=== PATIENT | female | born 1965 | race Hispanic/Latino ===

== ENCOUNTER → 2022-09-22 | Outpatient (CLI) | payer BC | END | disposition home or self-care (01) | LOC: RAH 10:20 | PROVIDERS: ATTEND Internal Medicine Nephrology | DX: R10.9 Unspecified abdominal pain (principal); R33.8 Other retention of urine | CPT/HCPCS: 76770 ==

== ENCOUNTER → 2024-10-28 | Outpatient (CLI) | payer BC ==
--- NOTE | 2024-10-29 07:25 | HMCIMG ---
EXAMINATION: ULTRASOUND OF THE RETROPERITONEUM. CLINICAL HISTORY: Hematuria. COMPARISON: Ultrasound of the retroperitoneum dated 09/22/2022. TECHNIQUE: Real-time grayscale ultrasound images of the kidneys. FINDINGS: The kidneys are normal in caliber, the right kidney measures 11.0 x 5.2 x 5.5 cm and the left kidney measures 10.7 x 5.7 x 4.9 cm in its craniocaudal, AP, and transverse dimensions respectively. There is normal renal cortical thickness, and cortical echogenicity. There is no renal calculus or hydronephrosis. The urinary bladder is partially distended with normal wall thickness (0.4 cm). There are no calculi in the urinary bladder. IMPRESSION: No significant abnormality. /[place]
== END | disposition home or self-care (01) ==
LOC: RAH 14:16
PROVIDERS: ATTEND Internal Medicine Nephrology
DX: N32.89 Other specified disorders of bladder (principal); R31.9 Hematuria, unspecified
CPT/HCPCS: 76770

== ENCOUNTER → 2025-02-21 | Outpatient (CLI) | payer BC ==
--- NOTE | 2025-02-21 18:11 | HMCIMG ---
EXAM: LUMBAR SPINE RADIOGRAPHS, 6 VIEWS (AP, lateral, bilateral obliques, flexion, and extension) Technique: Anteroposterior, lateral, and bilateral oblique views of the lumbar spine with flexion and extension lateral views were obtained. Clinical Information: Vertebrogenic low back pain. Findings: Lumbar spine: Vertebral body heights are preserved without acute compression deformity. Grade 1 anterolisthesis of L4 on L5 is present and persists on flexion and extension without gross dynamic translation. Bilateral pars interarticularis defects at L4 are identified on the oblique projections. Severe intervertebral disc space narrowing at L4???L5 with endplate sclerosis, compatible with advanced degenerative disc disease at this level. Remaining lumbar disc spaces are maintained. No acute malalignment elsewhere. Facet arthrosis is most pronounced at L4???L5. Sacroiliac joints are grossly unremarkable on the provided views. Right upper quadrant surgical clips consistent with prior cholecystectomy are incidentally noted. 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 * Severe L4???L5 disc height loss with endplate sclerosis???advanced degenerative disc disease at this level. * No acute compression fracture identified. * Management: Correlate with radicular symptoms; consider magnetic resonance imaging if there are neurologic deficits or refractory pain to evaluate neural element impingement and degree of canal/foraminal stenosis. /[place]
== END | disposition home or self-care (01) ==
LOC: RAH 15:41
PROVIDERS: ATTEND Physician Assistant
DX: M51.360 Other intervertebral disc degeneration, lumbar region with discogenic back pain only (principal); M43.8X6 Other specified deforming dorsopathies, lumbar region; M43.16 Spondylolisthesis, lumbar region; M48.061 Spinal stenosis, lumbar region without neurogenic claudication; M41.86 Other forms of scoliosis, lumbar region; M99.03 Segmental and somatic dysfunction of lumbar region; M99.05 Segmental and somatic dysfunction of pelvic region; M54.9 Dorsalgia, unspecified
CPT/HCPCS: 72110

== ENCOUNTER → 2025-02-25 | Outpatient (CLI) | payer BC ==
--- NOTE | 2025-02-27 06:03 | HMCIMG ---
EXAM: MR Lumbar Spine Without Intravenous Contrast. CLINICAL HISTORY: Other intervertebral disc degeneration. TECHNIQUE: Magnetic resonance images of the lumbar spine in multiple planes. CONTRAST: None. COMPARISON: Radiograph dated 02/21/25. FINDINGS: For this examination, spinal levels were labeled assuming five [id number], lumbar-type vertebrae, with the inferior labeled L5. No acute fracture. Mild dextroscoliosis. Old, bilateral L4 pars interarticularis fractures with grade 1 anterolisthesis of L4 over L5. Mild multilevel spondylosis is evident by small marginal osteophytes. Multilevel disc desiccation noted. Severe degenerative disc height reduction at the L4-L5 level. Normal vertebral body and remaining disc heights. Small hemangiomas in the T11 and T12 vertebral bodies. Conus medullaris terminates at the T12-L1 level. No abnormal epidural masses. The surrounding soft tissues are unremarkable. Individual spinal levels are described as follows: T12-L1: No disc bulge or herniation. No neural foraminal, lateral recess, or spinal canal stenosis. L1-L2: No disc bulge or herniation. No neural foraminal, lateral recess, or spinal canal stenosis. L2-L3: No disc bulge or herniation. No neural foraminal, lateral recess, or spinal canal stenosis. L3-L4: No disc bulge or herniation. No neural foraminal, lateral recess, or spinal canal stenosis. L4-L5: 8 mm anterolisthesis of L4 over L5 with uncovering of the posterior disc causing mild indentation on the anterior thecal sac and moderate to severe bilateral foraminal narrowing with compression of the exiting bilateral L4 nerve roots. No lateral recess stenosis. L5-S1: No disc bulge or herniation. No neural foraminal, lateral recess, or spinal canal stenosis. IMPRESSION: Mild dextroscoliosis. Old, bilateral L4 pars interarticularis fractures with grade 1 anterolisthesis of L4 over L5. Mild multilevel spondylosis. Severe degenerative disc height reduction at the L4-L5 level. Mild indentation on the anterior thecal sac and moderate to severe bilateral foraminal narrowing with compression of the exiting bilateral L4 nerve roots at the L4-L5 level. /[place]
== END | disposition home or self-care (01) ==
LOC: RAH 07:58
PROVIDERS: ATTEND Physical Medicine & Rehabilitation
DX: M47.816 Spondylosis without myelopathy or radiculopathy, lumbar region (principal); M51.369 Other intervertebral disc degeneration, lumbar region without mention of lumbar back pain or lower extremity pain; M48.061 Spinal stenosis, lumbar region without neurogenic claudication; M43.16 Spondylolisthesis, lumbar region; M25.78 Osteophyte, vertebrae; M99.03 Segmental and somatic dysfunction of lumbar region; M54.51 Vertebrogenic low back pain; M41.86 Other forms of scoliosis, lumbar region; D18.09 Hemangioma of other sites; M53.86 Other specified dorsopathies, lumbar region
CPT/HCPCS: 72148